=== PATIENT | female | born 1985 | race Two or more races ===

== ENCOUNTER 2019-09-13 19:22 | Inpatient (IN) | payer OTHER ==
[~2019-09-13] VITALS: Ht 154.9 cm; Wt 107.5 kg
[2019-09-13] MEDS ORDERED: RINGERS SOLUTION,LACTATED 1,000 ML IV PRN (20:39)
[2019-09-13] MEDS ORDERED: METOCLOPRAMIDE HCL 5 MG/ML 2 ML VIAL IVP PRN (20:45)
[2019-09-13] MEDS ORDERED: CITRIC ACID/SODIUM CITRATE 30 ML SOLUTION UDCUP PO PRN (20:45)
[2019-09-13 21:00] VITALS: BP 144/86
[2019-09-13 21:40] LABS: BASOPHILS % (AUTO) 0.4 % (0.0-2.0); EOSINOPHILS % (AUTO) 0.5 % (1.0-6.0); HEMATOCRIT 36.3 % (36-46); HEMOGLOBIN 12.3 g/dL (12.0-16.0); LYMPHOCYTES # (AUTO) 1.5 K/uL (1.0-4.8); LYMPHOCYTES % (AUTO) 18.3 % (22.0-44.0); MEAN CORPUSCULAR HEMOGLOBIN 30.4 pg (26.0-34.0); MEAN CORPUSCULAR VOLUME 90 fL (80-100); MONOCYTES # (AUTO) 0.5 K/uL (0.1-1.0); MONOCYTES % (AUTO) 6.8 % (2.0-9.0); NEUTROPHILS # (AUTO) 5.9 K/uL (1.8-7.7); PLATELET COUNT (AUTO)-OB 256 K/uL (150-450); RED BLOOD CELL COUNT(AUTO) 4.05 MIL/uL (4.00-5.20); RED CELL DISTRIBUTION WIDTH 14.6 % (11.5-14.5)
[2019-09-13 22:03] LABS: ALANINE AMINOTRANSFERASE 24 U/L (12-78); ALBUMIN 2.4 g/dL (3.4-5.0); ALKALINE PHOSPHATASE 189 U/L (46-116); ANION GAP 10 mmol/L (8-16); ASPARTATE AMINOTRANSFERASE 15 U/L (15-37); BILIRUBIN,TOTAL 0.2 mg/dL (0.1-1.0); CALCIUM, TOTAL 9.2 mg/dL (8.8-10.5); CARBON DIOXIDE 21 mmol/L (22-29); CHLORIDE 105 mmol/L (98-107); CREATININE 0.61 mg/dL (0.60-1.30); GLOMERULAR FILTR. RATE CALC > 60 mL/min (>60); GLUCOSE,RANDOM 83 mg/dL (70-110); POTASSIUM 4.5 mmol/L (3.5-5.1); SODIUM SERUM 136 mmol/L (136-145); TOTAL PROTEIN, SERUM 6.7 g/dL (6.4-8.2); UREA NITROGEN, BLOOD 7 mg/dL (7-18); URIC ACID 4.4 mg/dL (2.6-7.2)
[2019-09-13] MEDS ORDERED: prenatal vitamin PO (23:19)
[2019-09-14] MEDS: RINGERS SOLUTION,LACTATED 1,000 ML IV SCH ×4 (06:25→23:18)
[2019-09-14] MEDS ORDERED: DINOPROSTONE 10 MG VAGINAL SUPPOSITORY VG ONE (07:00)
[2019-09-14] MEDS ORDERED: OXYGEN THERAPY IH SCH (08:00)
[2019-09-14] MEDS ORDERED: -PHARMACY NOTE- MISC ONE (19:00)
[2019-09-14] MEDS ORDERED: ROPIVACAINE HCL/PF 0.2% 100 ML ED ONE (21:16)
[2019-09-14] MEDS ORDERED: LIDOCAINE/PF 2% 5 ML VIAL ONE (21:16)
[2019-09-14] MEDS ORDERED: DiphenhydrAMINE HCL 50 MG/ML VIAL IVP PRN (22:15)
[2019-09-14] MEDS ORDERED: NALBUPHINE HCL 10 MG/ML VIAL IVP PRN (22:15)
[2019-09-14] MEDS ORDERED: ONDANSETRON HCL 4 MG/2 ML VIAL IVP PRN (22:15)
[2019-09-14] MEDS ORDERED: OXYTOCIN 30 UNITS/LACT RINGERS 500 ML IV PRN (23:09)
[2019-09-14] MEDS ORDERED: RINGERS SOLUTION,LACTATED 1,000 ML IV ONE (23:15)
[2019-09-15] MEDS: ROPIVACAINE HCL/PF 0.2% 100 ML ED PRN ×2 (04:37→11:54)
[2019-09-15] MEDS: RINGERS SOLUTION,LACTATED 1,000 ML IV SCH ×4 (06:34→23:34)
[2019-09-15] MEDS ORDERED: ONDANSETRON HCL 4 MG/2 ML VIAL IVP ONE (12:00)
[2019-09-15] MEDS ORDERED: EPHEDrine SULFATE 50 MG/ML VIAL IM ONE (12:00)
[2019-09-15] MEDS ORDERED: 0.9% SODIUM CHLORIDE 10 ML VIAL IV ONE (12:00)
[2019-09-15] MEDS ORDERED: ACETAMINOPHEN 1000 MG/ISO-OSM 100 ML IV ONE (12:40)
[2019-09-15] MEDS ORDERED: MORPHINE SULFATE/PF 0.5 MG/ML 10 ML AMP ONE (12:40)
[2019-09-15] MEDS ORDERED: LIDOCAINE 2%/EPI 1:200,000/PF 20 ML VIAL ONE (12:40)
[2019-09-15] MEDS ORDERED: FentaNYL CITRATE-PF 100 MCG/2 ML VIAL IVP PRN ×2 (13:00→13:30)
[2019-09-15] MEDS ORDERED: NALBUPHINE HCL 10 MG/ML VIAL IVP PRN ×2 (13:00)
[2019-09-15] MEDS ORDERED: NALOXONE HCL 0.4 MG/ML VIAL IVP PRN (13:00)
[2019-09-15] MEDS ORDERED: ONDANSETRON HCL 4 MG/2 ML VIAL IVP PRN ×2 (13:00→13:30)
[2019-09-15] MEDS ORDERED: MORPHINE SULFATE 10 MG/ML SYRINGE IVP PRN (13:00)
[2019-09-15] MEDS ORDERED: DiphenhydrAMINE HCL 50 MG/ML VIAL IVP PRN (13:00)
[2019-09-15] MEDS ORDERED: GUM MASTIC/STORAX/MSAL/ALCOHOL LIQUID 0.67 ML VIAL TP ONE (13:04)
[2019-09-15] MEDS ORDERED: RINGERS SOLUTION,LACTATED 1,000 ML IV ONE (14:17)
[2019-09-15] MEDS ORDERED: FentaNYL CITRATE-PF 100 MCG/2 ML VIAL ONE (14:17)
[2019-09-15] MEDS ORDERED: BUPIVACAINE HCL/PF 0.5% 10 ML VIAL ONE (14:17)
[2019-09-15] MEDS ORDERED: METHYLERGONOVINE MALEATE 0.2 MG/ML VIAL IM PRN (17:00)
[2019-09-15] MEDS ORDERED: LANOLIN 7 GM OINTMENT TP PRN (17:30)
[2019-09-15] MEDS ORDERED: OxyCODONE HCL/ACETAMINOPHEN 5-325 MG TABLET PO PRN (17:30)
[2019-09-15] MEDS: KETOROLAC TROMETHAMINE 30 MG/ML VIAL IVP SCH (18:33)
[2019-09-15] MEDS: ACETAMINOPHEN 1000 MG/ISO-OSM 100 ML IV SCH (18:34)
[2019-09-15] MEDS ORDERED: METHYLERGONOVINE MALEATE 0.2 MG/ML VIAL ONE (18:51)
[2019-09-15] MEDS ORDERED: OXYGEN THERAPY IH SCH ×2 (20:00)
[2019-09-15] MEDS: MAGNESIUM HYDROXIDE SUSPENSION 30 ML UDCUP PO SCH (23:33)
[2019-09-16] MEDS: KETOROLAC TROMETHAMINE 30 MG/ML VIAL IVP SCH (01:13)
[2019-09-16] MEDS: ACETAMINOPHEN 1000 MG/ISO-OSM 100 ML IV SCH (01:13)
[2019-09-16] MEDS: RINGERS SOLUTION,LACTATED 1,000 ML IV SCH (05:19)
[2019-09-16 07:39] LABS: BASOPHILS % (AUTO) 0.1 % (0.0-2.0); EOSINOPHILS % (AUTO) 0.2 % (1.0-6.0); HEMATOCRIT 28.7 % (36-46); HEMOGLOBIN 9.8 g/dL (12.0-16.0); LYMPHOCYTES # (AUTO) 1.4 K/uL (1.0-4.8); LYMPHOCYTES % (AUTO) 13.7 % (22.0-44.0); MEAN CORPUSCULAR HEMOGLOBIN 30.9 pg (26.0-34.0); MEAN CORPUSCULAR VOLUME 91 fL (80-100); MONOCYTES # (AUTO) 0.6 K/uL (0.1-1.0); MONOCYTES % (AUTO) 5.9 % (2.0-9.0); NEUTROPHILS # (AUTO) 8.2 K/uL (1.8-7.7); NEUTROPHILS % (AUTO) 80.1 % (40.0-70.0); PLATELET COUNT (AUTO)-OB 174 K/uL (150-450); RED BLOOD CELL COUNT(AUTO) 3.16 MIL/uL (4.00-5.20); RED CELL DISTRIBUTION WIDTH 14.7 % (11.5-14.5)
[2019-09-16] MEDS: MAGNESIUM HYDROXIDE SUSPENSION 30 ML UDCUP PO SCH ×2 (09:17→21:00)
[2019-09-16] MEDS: OxyCODONE HCL/ACETAMINOPHEN 5-325 MG TABLET PO PRN (17:46)
[2019-09-16] MEDS: IBUPROFEN 800 MG TABLET PO PRN ×2 (17:46→23:37)
[2019-09-17] MEDS: IBUPROFEN 800 MG TABLET PO PRN (08:39)
[2019-09-17] MEDS: OxyCODONE HCL/ACETAMINOPHEN 5-325 MG TABLET PO PRN (12:08)
[2019-09-17] MEDS ORDERED: IBUP-2070 PO (12:38)
[2019-09-17] MEDS ORDERED: HYDR-4455 PO (13:06)
== END 2019-09-17 14:20 | disposition home or self-care (01) | DRG 788 ==
LOC: OBSVTOIN 19:22 → 4S 19:22
PROVIDERS: ADMIT Obstetrics & Gynecology Obstetrics; ATTEND Obstetrics & Gynecology Obstetrics
PROC: 10D00Z1 Extraction of Products of Conception, Low, Open Approach (ICD-10-PCS; principal; 2019-09-15)
DX: O14.04 Mild to moderate pre-eclampsia, complicating childbirth (principal); O61.9 Failed induction of labor, unspecified; Z3A.39 39 weeks gestation of pregnancy; Z37.0 Single live birth
CPT/HCPCS: 84550; 86850; 86900; 86901; 87081; J0131; J0690; J1885; J2210; J2274; J2405; J2590; J2765; J2795; J3010; J3490; J7120